=== PATIENT | male | born 1955 ===

== ENCOUNTER 2024-09-02 08:00 | Inpatient (IN) | payer OTHER ==
[~2024-09-02] VITALS: Ht 175.3 cm; Wt 88.5 kg
[2024-09-02 08:35] LABS: PH,URINE 5.5 (5.0-8.0); URINE APPEARANCE Cloudy; URINE BILIRRUBIN Negative (NEGATIVE); URINE BLOOD Negative; URINE COLOR Yellow; URINE GLUCOSE Negative (NEGATIVE); URINE KETONE Negative (NEGATIVE); URINE LEUKOCYTE Negative; URINE NITRATE Negative; URINE PROTEIN Negative (NEGATIVE); URINE UROBILINOGEN 0.2 E.U./dl
[2024-09-02 08:35] LABS: HEMATOCRIT 43.3 % (39.0-48.0); HEMOGLOBIN 14.3 g/dL (13-16.00); MEAN CELL VOLUME 95.1 fL (80.0-100.00); MEAN CORPUSCULAR HEMOGLOBIN 31.4 pg (27.00-32.0); PLATELET COUNT 196 K/uL (150-450); RED BLOOD COUNT 4.55 M/uL (4.00-6.00); RED CELL DISTRIBUTION WIDTH 13.2 % (11.5-14.5)
[2024-09-02 08:39] LABS: URINE BACTERIA 6.1 uL (0.0-1933); URINE EPITHELIAL CELLS 3.3 uL (0.0-38.8); URINE RBC 5.7 uL (0.0-20.8)
[2024-09-02 08:57] LABS: URINE CAST 0.14 uL (0.0-1.40); URINE WBC 1.7 uL (0.0-23.2)
[2024-09-02 09:08] LABS: INR 0.98; PARTIAL THROMBOPLASTIN TIME 27.2 SECONDS (22.0-34.0); PROTHROMBIN TIME 10.7 SECONDS (9.0-11.5)
[2024-09-02 09:35] LABS: CALCIUM 9.3 mg/dL (8.5-10.1); CREATININE SERUM 0.64 mg/dL (0.70-1.30); GFR 123.28; POTASSIUM 4.39 mEq/L (3.5-5.1)
[2024-09-02 11:33] LABS: RH POSITIVE
[2024-09-14] MEDS ORDERED: KETOROLAC TROMETHAMINE 60 MG VIAL IM ONE (08:59)
[2024-09-14] MEDS ORDERED: CEFAZOLIN SODIUM 1,000 MG VIAL ONE (08:59)
[2024-09-14] MEDS ORDERED: TRANEXAMIC ACID 100MG/1ML (1000MG) AMPUL IV ONE (09:00)
[2024-09-14] MEDS ORDERED: METHYLPREDNISOLONE ACETATE 80 MG/ML VIAL IU ONE (11:15)
[2024-09-14] MEDS ORDERED: GENTAMICIN SULFATE 40 MG/ML VIAL IV SCH (13:03)
[2024-09-14] MEDS ORDERED: SODIUM CHLORIDE 0.45 % 1,000 ML IV SCH (13:15)
[2024-09-14] MEDS ORDERED: MORPHINE SULFATE 4 MG/ML CARTRIDGE IV PRN (13:15)
[2024-09-14] MEDS ORDERED: MORPHINE SULFATE 2 MG/ML CARTRIDGE IV ONE (13:15)
[2024-09-14] MEDS ORDERED: ONDANSETRON HCL 2 MG/ML VIAL IV PRN (13:15)
[2024-09-14] MEDS ORDERED: GENTAMICIN SULFATE 40 MG/ML VIAL ONE (14:16)
[2024-09-14] MEDS ORDERED: MORPHINE SULFATE 4 MG/ML VIAL IV ONE ×2 (14:25→16:45)
[2024-09-14 17:08] VITALS: BP 154/80; O2SAT 95
[2024-09-14] MEDS ORDERED: CEFAZOLIN SODIUM 1,000 MG VIAL IV SCH (18:00)
[2024-09-15 00:12] VITALS: BP 129/70; O2SAT 97
[2024-09-15 07:12] LABS: HEMATOCRIT 35.7 % (39.0-48.0); HEMOGLOBIN 12.2 g/dL (13-16.00); MEAN CELL VOLUME 93.8 fL (80.0-100.00); MEAN CORPUSCULAR HGB CONC 34.1 g/dl (32.0-36.0); PLATELET COUNT 177 K/uL (150-450); RED CELL DISTRIBUTION WIDTH 13.4 % (11.5-14.5)
[2024-09-15 08:00] VITALS: BP 98/60; O2SAT 99
[2024-09-15] MEDS ORDERED: ACETAMINOPHEN WITH CODEINE 1 UDTAB TABLET PO PRN (08:00)
[2024-09-15] MEDS ORDERED: BACITRACIN 28.35 GM OINT.TUBE TOP SCH (09:00)
[2024-09-15] MEDS ORDERED: RIVAROXABAN 10 MG TAB PO SCH (09:00)
[2024-09-15] MEDS ORDERED: SENNA/DOCUSATE SODIUM 1 TAB TABLET PO SCH (09:00)
[2024-09-15] MEDS ORDERED: IRON FUM,PS/FOLIC/BCOMP,C NO.9 1 CAP CAPSULE PO SCH (09:00)
[2024-09-15] MEDS ORDERED: CELECOXIB 200 MG CAPSULE PO SCH (09:00)
[2024-09-15] MEDS ORDERED: ACETAMINOPHEN WITH CODEINE 1 UDTAB TABLET PO SCH (12:00)
[2024-09-15 17:09] VITALS: BP 129/72; O2SAT 96
[2024-09-16 00:44] VITALS: BP 123/57; O2SAT 96
[2024-09-16 07:03] LABS: HEMATOCRIT 31.8 % (39.0-48.0); HEMOGLOBIN 10.6 g/dL (13-16.00); MEAN CORPUSCULAR HEMOGLOBIN 31.9 pg (27.00-32.0); MEAN CORPUSCULAR HGB CONC 33.2 g/dl (32.0-36.0); PLATELET COUNT 161 K/uL (150-450); RED BLOOD COUNT 3.32 M/uL (4.00-6.00); RED CELL DISTRIBUTION WIDTH 13.2 % (11.5-14.5)
[2024-09-16] MEDS ORDERED: ACETAMINOPHEN-1 EAC2 PO (08:14)
[2024-09-16] MEDS ORDERED: INTEGRA PLUS C1 EACH PO (08:14)
[2024-09-16] MEDS ORDERED: XARELTO10 MG PO (08:14)
[2024-09-16] MEDS ORDERED: BACTRIM DS TAB1 EACH PO (08:14)
[2024-09-16 08:18] VITALS: BP 123/67; O2SAT 96
[2024-09-16] MEDS ORDERED: SULFAMETHOXAZOLE/TRIMETHOPRIM DS 1 TAB PO SCH (09:00)
[2024-09-16 16:00] VITALS: BP 149/76; O2SAT 92
== END 2024-09-16 16:59 | DRG 470 ==
LOC: O/R 09-14 06:00 → SURG 09-14 06:00 → SURH 09-14 08:00 → SURG 09-14 15:26
PROVIDERS: ADMIT Orthopaedic Surgery Sports Medicine; ATTEND Orthopaedic Surgery Sports Medicine
PROC: 0SRC0J9 Replacement of Right Knee Joint with Synthetic Substitute, Cemented, Open Approach (ICD-10-PCS; principal; 2024-09-14 14:00)
DX: M17.11 Unilateral primary osteoarthritis, right knee (principal)